=== PATIENT | male | born 1990 | race American Indian/Alaskan Native ===

== ENCOUNTER 2019-11-10 03:17 | Emergency (ER) | payer OTHER ==
[2019-11-10] MEDS ORDERED: IBUPROFEN ORAL LIQD 100 MG/5 ML ORAL.LIQD PO ONE (07:55)
[2019-11-10] MEDS ORDERED: ONDANSETRON 4 MG ODT TAB PO ONE (08:32)
[2019-11-10] MEDS ORDERED: KETOROLAC 30 MG/1 ML INJ IM ONE (08:32)
--- NOTE | 2019-11-10 08:37 | XRay Report ---
CHEST 1 VIEW INDICATION: fever and cough. COMPARISON: None. FINDINGS: Support devices: None. Heart: Normal. Lungs/Pleura: No acute pulmonary or pleural findings. IMPRESSION: 1. No acute findings. Signer Name: Robinson Henderson MD Signed: 11/10/2019 8:33 AM Workstation Name: [id number]
--- NOTE | 2019-11-10 08:38 | Emergency Department Report ---
<MADDY CRANE - Last Filed: 11/10/19 09:03> ED General Adult HPI - General Chief complaint: Fever Stated complaint: BODYACHES HEADACHE SOB CHILLS Time Seen by Provider: 11/10/19 07:28 Source: patient Mode of arrival: Ambulatory Limitations: No Limitations - History of Present Illness Initial comments: This is a 29-year-old -[place] male who presents to the emergency room with myalgia, chills, headache, and shortness of breath for 3 days. No significant past medical history. Patient reports worsening symptoms last night. He is currently taking NyQuil for symptomatic relief. Patient also reports contact with a friend who had similar symptoms. He denies receiving influenza vaccine. He denies nausea, vomiting, diarrhea, abdominal pain, or weakness. Onset/Timin -: days(s) Severity scale (0 -10): 0 Consistency: intermittent Improves with: none Worsens with: movement Associated Symptoms: cough, fever/chills, headaches, shortness of breath. denies: confusion, chest pain, diaphoresis, loss of appetite, malaise, nausea/vomiting, rash, seizure, syncope, weakness - Related Data Previous Rx's Medication Instructions Recorded Last Taken Type Benzonatate [Tessalon Perles] 100 mg PO Q8HR PRN #30 capsule 11/10/19 Unknown Rx Fluticasone [Flonase] 1 spray NS QDAY PRN #1 bottle 11/10/19 Unknown Rx guaiFENesin 400 mg PO Q4H #20 tablet 11/10/19 Unknown Rx ED Review of Systems Constitutional: chills, fever ENT: congestion. denies: ear pain, throat pain Respiratory: cough, shortness of breath. denies: wheezing Cardiovascular: denies: chest pain, palpitations Gastrointestinal: denies: abdominal pain, nausea, diarrhea Musculoskeletal: myalgia. denies: back pain, joint swelling, arthralgia Skin: denies: rash, lesions Neurological: denies: headache, weakness, paresthesias Psychiatric: denies: anxiety, depression ED Past Medical Hx - Past Medical History Previous Medical History?: Yes Hx Hypertension: Yes - Surgical History Past Surgical History?: No - Social History Smoking Status: Former Smoker Substance Use Type: Alcohol - Medications Home Medications: Home Medications Medication Instructions Recorded Confirmed Last Taken Type Benzonatate [Tessalon Perles] 100 mg PO Q8HR PRN #30 capsule 11/10/19 Unknown Rx Fluticasone [Flonase] 1 spray NS QDAY PRN #1 bottle 11/10/19 Unknown Rx guaiFENesin 400 mg PO Q4H #20 tablet 11/10/19 Unknown Rx ED Physical Exam - General Limitations: No Limitations General appearance: alert, in no apparent distress, obese - ENT ENT exam: Present: mucous membranes moist, TM's normal bilaterally, normal external ear exam, other (turbinates congested with clear discharge). Absent: normal orophraynx (erythematous and enlarged tonsils without exudate, uvula midline) - Neck Neck exam: Present: normal inspection - Respiratory Respiratory exam: Present: normal lung sounds bilaterally. Absent: respiratory distress - Cardiovascular Cardiovascular Exam: Present: regular rate, normal rhythm. Absent: systolic murmur, diastolic murmur, rubs, gallop - GI/Abdominal GI/Abdominal exam: Present: soft, normal bowel sounds. Absent: distended, ten derness, guarding, rebound, rigid - Neurological Exam Neurological exam: Present: alert, oriented X3, normal gait - Psychiatric Psychiatric exam: Present: normal affect, normal mood - Skin Skin exam: Present: warm, dry, intact, normal color. Absent: rash ED Medical Decision Making - Radiology Data Radiology results: report reviewed CHEST 1 VIEW INDICATION: fever and cough. COMPARISON: None. FINDINGS: Support devices: None. Heart: Normal. Lungs/Pleura: No acute pulmonary or pleural findings. IMPRESSION: 1. No acute findings. - Medical Decision Making Otherwise healthy patient presenting with constellation of symptoms likely representing uncomplicated viral upper respiratory symptoms. Unlikely PRESENTATION SPECIALIST/RPA: no hot potato voice, no uvular deviation, Unlikely Esophageal rupture: No history of dysphagia. Low suspicion for FAMILY PRACTICE MEDICAL DOCTOR infection bacterial sinusitis, or pneumonia given exam and Negative CXR. Unlikely Strep or EBV as centor negative and with no pharyngeal exudate, posterior LAD, or splenomegaly. Given analgesics and antiemetic to alleviate symptoms. No indications at this time for antibiotics. No respiratory distress, otherwise relatively well appearing and nontoxic. Will discuss prompt follow up with PCP and strict return precautions. Patient discharge home stable. Return to work in 2 days. ED Disposition Clinical Impression: Upper respiratory infection Qualifiers: URI type: acute nasopharyngitis (common cold) Qualified Code(s): J00 - Acute nasopharyngitis [common cold] Disposition: DC-01 TO HOME OR SELFCARE Is pt being admited?: No Condition: Stable Instructions: Upper Respiratory Infection (ED), Cold Symptoms (ED) Additional Instructions: Increase fluid intake and rest. Wash hands frequently. Continue taking Tylenol or ibuprofen to control fever. F/U with Primary Care Provider. Return to ER if fever, shortness of breath, or difficulty breathing after 48 hours of supportive care. Prescriptions: Fluticasone [Flonase] 1 spray NS QDAY PRN #1 bottle PRN Reason: Congestion guaiFENesin 400 mg PO Q4H #20 tablet Benzonatate [Tessalon Perles] 100 mg PO Q8HR PRN #30 capsule PRN Reason: Cough Referrals: [facility] [Outside] - 3-5 Days [facility] [Outside] - 3-5 Days [facility] [Outside] - 3-5 Days Forms: Work/School Release Form(ED) Time of Disposition: 09:10 <JANA AVILA P - Last Filed: 11/11/19 15:01> ED Review of Systems ROS: Stated complaint: BODYACHES HEADACHE SOB CHILLS Other details as noted in HPI ED Course Vital Signs 11/10/19 11/10/19 03:24 09:29 Temperature 99.6 F Pulse Rate 97 H 86 Respiratory 18 16 Rate Blood Pressure 147/90 Blood Pressure 136/84 [Right] O2 Sat by Pulse 97 100 Oximetry ED Medical Decision Making - Medical Decision Making Attestation: Available for consultation Critical care attestation.: If time is entered above; I have spent that time in minutes in the direct care of this critically ill patient, excluding procedure time. ED Disposition Is pt being admited?: No
[2019-11-10 09:30] VITALS: BP 136/84
== END 2019-11-10 09:09 | disposition home or self-care (01) ==
LOC: ED 03:17
DX: J06.9 Acute upper respiratory infection, unspecified (principal); F10.10 Alcohol abuse, uncomplicated; Z87.891 Personal history of nicotine dependence; Z79.899 Other long term (current) drug therapy
CPT/HCPCS: 71045; 96372; 99283; J1885; Q0162

== ENCOUNTER 2021-01-14 12:14 | Emergency (ER) | payer BC, OTHER ==
[2021-01-14 12:49] VITALS: BP 142/86
[2021-01-14] MEDS ORDERED: ACETAMINOPHEN 325 MG TAB PO ONE (12:53)
[2021-01-14] MEDS ORDERED: IBUPROFEN 600 MG TAB PO ONE (12:55)
--- NOTE | 2021-01-14 13:07 | Emergency Department Report ---
- General Chief Complaint: Headache Stated Complaint: BODY ACHE, HEADACHE, CHILLS, PRESSURE Time Seen by Provider: 01/14/21 12:47 Source: patient Mode of arrival: Ambulatory Limitations: No Limitations - History of Present Illness Initial Comments: Patient is a 30-year-old male presents emergency room with some URI symptoms that began 2 days ago. He has associated chills, generalized body aches, fever, diarrhea, mild dry cough, headache. He denies any rhinorrhea, congestion, productive cough, shortness of breath, vomiting. No past medical history. No allergies to medications. He denies any known sick contacts. He denies any recent travel. He states that he was out around several people 3 days ago. He states that he received COVID-19 testing it yesterday and is awaiting his results. He states he has been taking DayQuil and NyQuil. - Related Data Previous Rx's Medication Instructions Recorded Last Taken Type Benzonatate [Tessalon Perles] 100 mg PO Q8HR PRN #30 capsule 11/10/19 Unknown Rx Fluticasone [Flonase] 1 spray NS QDAY PRN #1 bottle 11/10/19 Unknown Rx guaiFENesin 400 mg PO Q4H #20 tablet 11/10/19 Unknown Rx Allergies Allergy/AdvReac Type Severity Reaction Status Date / Time No Known Allergies Allergy Unverified 01/14/21 12:48 ED Review of Systems ROS: Stated complaint: BODY ACHE, HEADACHE, CHILLS, PRESSURE Other details as noted in HPI Comment: All other systems reviewed and negative ED Past Medical Hx - Past Medical History Previous Medical History?: Yes Hx Hypertension: Yes - Social History Smoking Status: Former Smoker Substance Use Type: Alcohol - Medications Home Medications: Home Medications Medication Instructions Recorded Confirmed Last Taken Type Benzonatate [Tessalon Perles] 100 mg PO Q8HR PRN #30 capsule 11/10/19 Unknown Rx Fluticasone [Flonase] 1 spray NS QDAY PRN #1 bottle 11/10/19 Unknown Rx guaiFENesin 400 mg PO Q4H #20 tablet 11/10/19 Unknown Rx ED Physical Exam - General Limitations: No Limitations General appearance: alert, in no apparent distress - Head Head exam: Present: atraumatic, normocephalic - Eye Eye exam: Present: normal appearance - ENT ENT exam: Present: normal orophraynx, mucous membranes moist, TM's normal bilaterally, normal external ear exam - Respiratory Respiratory exam: Present: normal lung sounds bilaterally. Absent: respiratory distress, wheezes, rales, rhonchi, stridor, chest wall tenderness, accessory muscle use, decreased breath sounds, prolonged expiratory - Cardiovascular Cardiovascular Exam: Present: regular rate, normal rhythm, normal heart sounds. Absent: systolic murmur, diastolic murmur, rubs, gallop - Neurological Exam Neurological exam: Present: alert, oriented X3 - Psychiatric Psychiatric exam: Present: normal affect, normal mood - Skin Skin exam: Present: warm, dry, intact ED Course Vital Signs 01/14/21 01/14/21 12:46 14:18 Temperature 100.8 F H 99.6 F Pulse Rate 87 89 Respiratory 18 16 Rate Blood Pressure 142/86 O2 Sat by Pulse 100 97 Oximetry ED Medical Decision Making - Lab Data Vital Signs 01/14/21 01/14/21 12:46 14:18 Temperature 100.8 F H 99.6 F Pulse Rate 87 89 Respiratory 18 16 Rate Blood Pressure 142/86 O2 Sat by Pulse 100 97 Oximetry - Medical Decision Making Patient is a 30-year-old male presents emergency room with some URI symptoms that began 2 days ago. He has associated chills, generalized body aches, fever, diarrhea, mild dry cough, headache. He denies any rhinorrhea, congestion, productive cough, shortness of breath, vomiting. No past medical history. No allergies to medications. He denies any known sick contacts. He denies any recent travel. He states that he was out around several people 3 days ago. He states that he received COVID-19 testing it yesterday and is awaiting his results. He states he has been taking DayQuil and NyQuil. Initial vitals with low-grade fever which improved upon administration of Tylenol and ibuprofen. Breath sounds are clear bilaterally, no wheezing, no rales, no rhonchi. Do not suspect bacterial bronchitis or bacterial pneumonia at this time. No clinical signs of dehydration. Symptoms most likely related to viral URI. Patient is presenting with the symptoms during COVID-19 pandemic, discussed COVID-19 with patient, discuss strict return precautions, discussed outpatient testing, discussed self quarantine. Advised patient Please increase your fluid intake over the next several days. May take Tylenol as needed for fever or body aches. May take [id number] cold symptom relief medication such as Mucinex or TheraFlu. Follow-up with a primary care doctor for reexamination. Return to emergency room immediately for any new or worsening symptoms including but not limited to difficulty breathing, shortness of breath, severe chest pain, unable to tolerate by mouth intake, etc. Please self quarantine for 10 days from the onset of your symptoms. Please do not go out in public. If you are around others at home please wear a mask. If you need to cough or sneeze please do so in a napkin and immediately throw it away and immediately wash your hands. Wash your hands frequently. Wipe everything down. Critical care attestation.: If time is entered above; I have spent that time in minutes in the direct care of this critically ill patient, excluding procedure time. ED Disposition Clinical Impression: URI (upper respiratory infection) Qualifiers: URI type: unspecified URI Qualified Code(s): J06.9 - Acute upper respiratory infection, unspecified Disposition: DC- TO HOME OR SELFCARE Is pt being admited?: No Does the pt Need Aspirin: No Condition: Stable Instructions: Viral Respiratory Infection Additional Instructions: Please increase your fluid intake over the next several days. May take Tylenol as needed for fever or body aches. May take [id number] cold symptom relief medication such as Mucinex or TheraFlu. Follow-up with a primary care doctor for reexamination. Return to emergency room immediately for any new or worsening symptoms including but not limited to difficulty breathing, shortness of breath, severe chest pain, unable to tolerate by mouth intake, etc. Please self quarantine for 10 days from the onset of your symptoms. Please do not go out in public. If you are around others at home please wear a mask. If you need to cough or sneeze please do so in a napkin and immediately throw it away and immediately wash your hands. Wash your hands frequently. Wipe everything down. Referrals: ALFRED HAAS MD [Staff Physician] - 2-3 Days [facility] [Provider Group] - 2-3 Days Forms: Work/School Release Form(ED) Time of Disposition: 13:07 Print Language: [place]
== END 2021-01-14 14:19 | disposition home or self-care (01) ==
LOC: ED 12:14
DX: J06.9 Acute upper respiratory infection, unspecified (principal); I10 Essential (primary) hypertension; Z79.899 Other long term (current) drug therapy; Z87.891 Personal history of nicotine dependence
CPT/HCPCS: 99282